=== PATIENT | male | born 2000 | race Caucasian/White ===

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

== ENCOUNTER 2023-02-02 12:48 | Emergency (ER) | payer OTHER ==
[~2023-02-02] VITALS: Ht 182.9 cm; Wt 95.3 kg
[~2023-02-02 12:48] MED LIST: RIZA10TA20 PO
[2023-02-02] MEDS ORDERED: NS IV 1000 ML 1,000 ML IV STA (13:09)
[2023-02-02] MEDS ORDERED: hydrALAZINE (APESOLINE) 20 MG/ML VIAL IV STA (13:09)
[2023-02-02] MEDS ORDERED: ASPIRIN 81 MG CHEW (CHILDREN'S ASA) PO ONE (13:15)
--- NOTE | 2023-02-02 13:15 | ED Chest Pain ---
General Chief Complaint: Chest Pain Stated Complaint: CHEST PAIN Nursing Triage Note: PT AMBULATE TO [facility] WITHOUT DIFFICULTY WIT C/O CHEST PAIN STARTING YESTERDAY. PT REPORTS MED CHANGE X3 WEEKS AGO. Source: patient History of Present Illness Date Seen by Provider: Feb 02, 2023 Time Seen by Provider: 12:51 Initial Comments 22-year-old male presenting with complaints of substernal chest pain that started yesterday as well as intermittent headaches over the last few weeks. He reports that he had been on lisinopril for blood pressure control but developed a cough with it so they switched him to start losartan. He has had some intermittent episodes of headache and felt like it was related to his blood pressure being high. With him continuing to have chest pains today from last night he came to the emergency department to be evaluated. He had not taking anything for pain at home. He denies having nausea, vomiting, shortness of breath, cough, abdominal pain, radiation of the chest pain. He was unsure if it was just related to his high blood pressure or if he had something else going on. He has no known cardiac history other than the high blood pressure. He reports that he has seen a sample grinder about his blood pressure in the head told him he should have his thyroid checked but he has not gone back to the [facility] since being told that. Timing/Duration: 24 hours (Intermittent chest pain since last night. Was worse while he was at work today so came to the emergency department to be evaluated.) Severity/Quality: mild, dull Location: substernal Radiation: no radiation Activities at Onset: rest (QRS last night and denies any strenuous activity at work today when he was having recurrent pain) Prior CP/Workup: no prior chest pain Modifying Factors: improves with other (Nothing seems to make the pain better or worse.) ASA po CORPORATE INVESTIGATOR: No NTG SL CORPORATE INVESTIGATOR: No Associated Symptoms: No abdominal pain, No back pain, No diaphoresis, No dizziness, No edema; fatigue; No fever/chills; headache; No heartburn, No nausea/vomiting, No rash; shortness of breath; No swelling/lump in chest, No syncope Allergies and Home Medications Allergies Coded Allergies: No Known Drug Allergies (Unverified , 12/26/19) Patient Home Medication List Home Medication List Reviewed: Yes Rizatriptan Benzoate (Maxalt Sales Agent) 10 Mg Tab.rapdis, 10 MG PO NEEDED Prescribed by: ALEA MCDONALD on 12/26/19 4214 Review of Systems Review of Systems Constitutional: No chills, No dizziness, No fever EENTM: No Blurred Vision, No Ear Drainage, No Ear Pain, No Nose Congestion Respiratory: See HPI; Denies Cough, Denies Stridor, Denies Wheezing Cardiovascular: See HPI; Denies Edema Gastrointestinal: See HPI; Denies Nausea, Denies Vomiting Genitourinary: No Symptoms Reported Musculoskeletal: no symptoms reported Skin: No change in color, No rash Psychiatric/Neurological: Headache; Denies Numbness, Denies Paresthesia Past Dengmcd-Kjbtvy-Vsmsai Hx Patient Social History Tobacco Use?: No Smoking Status: Never a Smoker Smokeless Tobacco Frequency: Never a User Use of E-Cig and/or Vaping dev: No Use of E-Cig and/or Vaping Samir: Never a User Substance use?: No Alcohol Use?: Yes Alcohol Frequency: Once in a while Pt feels they are or have been: No Past Medical History Surgery/Hospitalization HX: Hypertension Surgeries: No Respiratory: No Cardiac: Yes Neurological: No Genitourinary: No Gastrointestinal: No Musculoskeletal: No Endocrine: No HEENT: No Cancer: No Psychosocial: No Integumentary: No Blood Disorders: No Physical Exam Vital Signs Vital Signs - First Documented 02/02/23 02/02/23 12:48 15:51 Temp 36.4 Pulse 90 Resp 18 B/P (MAP) 173/64 (100) Pulse Ox 97 O2 Delivery Room Air Capillary Refill : Less Than 3 Seconds Height, Weight, BMI Height: '" Weight: lbs. oz. kg; 28.00 BMI Method: General Appearance: No Apparent Distress, WD/WN HEENT: PERRL/EOMI, Pharynx Normal Neck: Full Range of Motion, Normal Inspection, Non Tender, Supple Respiratory: Chest Non Tender, Lungs Clear, Normal Breath Sounds, No Accessory Muscle Use, No Respiratory Distress Cardiovascular: Regular Rate, Rhythm, Normal Peripheral Pulses Gastrointestinal: Normal Bowel Sounds, No Pulsatile Mass, Non Tender, Soft Extremity: Normal Capillary Refill, Normal Inspection, No Pedal Edema Neurologic/Psychiatric: Alert, Oriented x3, wafer fabrication technician II-XII Norm as Tested Skin: Normal Color, Warm/Dry Progress/Results/Core Measures Results/Orders Lab Results Laboratory Tests Test 02/02/23 12:34 02/02/23 14:45 Range/Units White Blood Count 8.3 4.3-11.0 10^3/uL Red Blood Count 5.39 4.30-5.52 10^6/uL Hemoglobin 15.6 13.3-17.7 g/dL Hematocrit 45 40-54 % Mean Corpuscular Volume 84 80-99 fL Mean Corpuscular Hemoglobin 29 25-34 pg Mean Corpuscular Hemoglobin Concent 34 32-36 g/dL Red Cell Distribution Width 12.8 10.0-14.5 % Platelet Count 223 130-400 10^3/uL Mean Platelet Volume 10.3 9.0-12.2 fL Immature Granulocyte % (Auto) 0 % Neutrophils (%) (Auto) 70 42-75 % Lymphocytes (%) (Auto) 20 12-44 % Monocytes (%) (Auto) 7 0-12 % Eosinophils (%) (Auto) 2 0-10 % Basophils (%) (Auto) 1 0-10 % Neutrophils # (Auto) 5.9 1.8-7.8 10^3/uL Lymphocytes # (Auto) 1.7 1.0-4.0 10^3/uL Monocytes # (Auto) 0.6 0.0-1.0 10^3/uL Eosinophils # (Auto) 0.2 0.0-0.3 10^3/uL Basophils # (Auto) 0.0 0.0-0.1 10^3/uL Immature Granulocyte # (Auto) 0.0 0.0-0.1 10^3/uL Prothrombin Time 13.0 12.2-14.7 SEC INR Comment 0.9 0.8-1.4 Activated Partial Thromboplast Time 27 24-35 SEC Sodium Level 137 135-145 MMOL/L Potassium Level 3.8 3.6-5.0 MMOL/L Chloride Level 99 98-107 MMOL/L Carbon Dioxide Level 24 21-32 MMOL/L Anion Gap 14 5-14 MMOL/L Blood Urea Nitrogen 11 7-18 MG/DL Creatinine 1.07 0.60-1.30 MG/DL Estimat Glomerular Filtration Rate 101 BUN/Creatinine Ratio 10 Glucose Level 126 H 70-105 MG/DL Calcium Level 9.7 8.5-10.1 MG/DL Corrected Calcium 8.5-10.1 MG/DL Magnesium Level 1.6 1.6-2.4 MG/DL Total Bilirubin 0.4 0.1-1.0 MG/DL Aspartate Amino Transf (AST/SGOT) 18 5-34 U/L Alanine Aminotransferase (ALT/SGPT) 20 0-55 U/L Alkaline Phosphatase 98 40-136 U/L Troponin I < 0.30 < 0.30 <0.30 NG/ML Pro-B-Type Natriuretic Peptide < 36.0 <125.0 PG/ML Total Protein 7.9 6.4-8.2 GM/DL Albumin 4.9 H 3.2-4.5 GM/DL Lipase 31 8-78 U/L My Orders Orders - DEJUAN ALEMAN MD Cbc With Automated Diff (02/02/23 13:09) Magnesium (02/02/23 13:09) Chest 1 View Ap/Pa Only (02/02/23 13:09) Ekg Tracing (02/02/23 13:09) Comprehensive Metabolic Panel (02/02/23 13:09) Protime With Inr (02/02/23 13:09) Partial Thromboplastin Time (02/02/23 13:09) Monitor-Rhythm Ecg Trace Only (02/02/23 13:09) Aspirin Chewable Tablet (Baby Aspirin Ch (02/02/23 13:15) Ed Iv/Invasive Line Start (02/02/23 13:09) Lipase (02/02/23 13:09) Troponin I Fs (02/02/23 13:09) Probnp Fs (02/02/23 13:09) Hydralazine Injection (Apresoline Inject (02/02/23 13:09) Ns Iv 1000 Ml (Sodium Chloride 0.9%) (02/02/23 13:09) Troponin I Fs (02/02/23 14:31) Medications Given in ED Current Medications Medications Dose Ordered Sig/Hever Route Start Time Stop Time Status Last Admin Dose Admin Aspirin 324 mg ONCE ONCE PO 02/02/23 13:15 02/02/23 13:16 DC 02/02/23 13:23 324 MG Vital Signs/I&O 02/02/23 02/02/23 12:48 15:51 Temp 36.4 36.2 Pulse 90 78 Resp 18 17 B/P (MAP) 173/64 (100) 149/86 Pulse Ox 97 O2 Delivery Room Air Room Air Blood Pressure Mean: 100 Progress Progress Note #1: Progress Note Potential diagnosis of hypertension, hypertensive urgency, myocardial infarction, acute coronary syndrome, GERD, esophageal spasm, cholecystitis, cholelithiasis, pancreatitis, pneumonia. Obtain peripheral IV access and send labs for complete blood count, comprehensive metabolic profile, magnesium, coagulation factors, troponin, proBNP. Obtain electrocardiogram to look at patient's heart rate and rhythm and look for ischemic changes. Placed on cardiac hospital monitor to watch for cardiac arrhythmia. Initially his cardiac rhythm showed sinus rhythm with a heart rate in the 70s. Obtain a chest x-ray to look for signs of mass, acute infiltrate, effusion. Administer aspirin 324 mg p.o. x1, hydralazine 10 mg IV to try and help with the blood pressure is initially he had 1 68-1 76 over 70s to 80s. Also administer normal saline 1 L IV fluid bolus for hydration. Progress Note #2: Progress Note On my personal review and interpretation of his electrocardiogram did not show any acute ischemic changes. His complete blood count was normal without elevation of the white blood cells for an infection and he was not anemic with a hemoglobin of 15.6. His comprehensive metabolic panel did not show any acute significant electrolyte imbalance to contribute to his complaint of high blood pressure and chest pain. He had improved blood pressure and pain with aspirin and hydralazine with IV fluids. He denies having any further pain on recheck of the patient. His blood pressure now ranges from 1 27-1 37 systolic. His troponin was less than 0.3 and he did not have elevation of his proBNP. His lipase was normal. He had no acute infiltrate or effusions on his 1 view chest x-ray. Will recheck the troponin at 2-hour calos to ensure that it was not changing or going out. Since he had had some pain since last night this would be a delta troponin and he would be able to be discharged home rather than after consider admission to the hospital for atypical chest pain. Encouraged to check back with the clinic about his blood pressure and they may have to adjust his medication dosing or add an additional blood pressure medicine. Also check with the clinic about thyroid testing as I did not have that immediately available in the emergency department. Progress Note #3: Progress Note Repeat troponin is still less than 0.3. He has had no recurrence of chest pain as his blood pressures come down. Encouraged again to check with the clinic about his thyroid and blood pressure medication dosing. Encouraged to drink plenty of fluids and stay well rested. Check back for continued or worsening symptoms either here in the emergency department or with the clinic. Initial ECG Impression Date: Feb 02, 2023 Initial ECG Impression Time: 12:54 Initial ECG Rate: 62 Initial ECG Rhythm: Normal Sinus Initial ECG Comparisson: No Previous ECG Available Comment Based on my personal interpretation and review the electrocardiogram shows sinus rhythm with a heart rate of 62 bpm. AK interval [address] elevation. No prior tracing for comparison. QT interval 357 ms with a QTc interval 363 ms. Diagnostic Imaging Diagonstic Imaging: Xray Plain Films/CT/US/NM/MRI: chest Comments [facility], [place] NAME: OLIVER LEMONS [facility] REC#: [id number] PT STATUS: DEP ER : 2000 PHYSICIAN: DEJUAN ALEMAN MD ADMIT DATE: 02/02/23/ER FS Signed Date of Exam:02/02/23 CHEST 1 VIEW AP/PA ONLY INDICATION: Chest pain with shortness of breath. FINDINGS: Two frontal radiographs of the chest are performed. The lungs are clear. No failure, effusion, or pneumothorax. IMPRESSION: Unremarkable frontal chest radiographs. Dictated by: Dictated on workstation # [id number] Dict: 02/02/23 1337 Trans: 02/02/23 1741 [id number] Interpreted by: MALLORY MURRELL Electronically signed by: MALLORY MURRELL 02/02/23 174 Reviewed: Reviewed by In Departure Impression Primary Impression: Hypertension Qualified Codes: I10 - Essential (primary) hypertension Additional Impression: Atypical chest pain Disposition: 01 HOME, SELF-CARE Condition: Improved Departure-Patient Inst. Decision time for Depature: 15:37 Referrals: ROXANA SAENZ APRN (PCP) Primary Care Physician [facility] (Family) Primary Care Physician Patient Instructions: High Blood Pressure ED, Chest Pain, Adult ED, DASH Diet Add. Discharge Instructions: Try following a dash diet for helping with your medicines to control your blood pressure better. Follow-up with the clinic as they may need to adjust your medications for blood pressure to get better control. When you follow-up with the clinic he could also check with them about the thyroid test that you were recommended to get from the other providers that you have seen. Try to stay well-hydrated and get plenty of rest. If your symptoms are worsening or you have new problems and concerns then you should be reevaluated otherwise certainly getting back in with the clinic for follow-up. All discharge instructions reviewed with patient and/or family. Voiced understanding. Work/School Note: Work Release Form Date Seen in the Emergency Department: Feb 02, 2023 Return to Work: Feb 03, 2023 Restrictions: No Restrictions DEJUAN ALEMAN MD Feb 02, 2023 13:15
[2023-02-02 13:24] LABS: BASOPHILS % (AUTO) 1 % (0-10); EOSINOPHILS # (AUTO) 0.2 10^3/uL (0.0-0.3); EOSINOPHILS % (AUTO) 2 % (0-10); HEMATOCRIT 45 % (40-54); HEMOGLOBIN 15.6 g/dL (13.3-17.7); LYMPHOCYTES # (AUTO) 1.7 10^3/uL (1.0-4.0); LYMPHOCYTES % (AUTO) 20 % (12-44); MEAN CORPUSCULAR HEMOGLOBIN 29 pg (25-34); MEAN CORPUSCULAR HGB CONC 34 g/dL (32-36); MEAN CORPUSCULAR VOLUME 84 fL (80-99); MEAN PLATELET VOLUME 10.3 fL (9.0-12.2); MONOCYTES # (AUTO) 0.6 10^3/uL (0.0-1.0); MONOCYTES % (AUTO) 7 % (0-12); NEUTROPHILS # (AUTO) 5.9 10^3/uL (1.8-7.8); NEUTROPHILS % (AUTO) 70 % (42-75); PLATELET COUNT 223 10^3/uL (130-400); WHITE BLOOD COUNT 8.3 10^3/uL (4.3-11.0)
[2023-02-02 13:34] LABS: INR 0.9 (0.8-1.4)
[2023-02-02 13:37] LABS: ALANINE AMINOTRANSFERASE 20 U/L (0-55); ALKALINE PHOSPHATASE 98 U/L (40-136); BILIRUBIN,TOTAL 0.4 MG/DL (0.1-1.0); BUN/CREATININE RATIO 10; CALCIUM 9.7 MG/DL (8.5-10.1); CARBON DIOXIDE 24 MMOL/L (21-32); CHLORIDE 99 MMOL/L (98-107); CREATININE SERUM 1.07 MG/DL (0.60-1.30); GFR ESTIMATED 101; GLUCOSE 126 MG/DL (70-105); MAGNESIUM 1.6 MG/DL (1.6-2.4); POTASSIUM 3.8 MMOL/L (3.6-5.0); SODIUM 137 MMOL/L (135-145)
[2023-02-02 13:38] LABS: ALBUMIN 4.9 GM/DL (3.2-4.5); LIPASE 31 U/L (8-78); TOTAL PROTEIN 7.9 GM/DL (6.4-8.2)
--- NOTE | 2023-02-02 13:41 | Diagnostic Imaging Report ---
INDICATION: Chest pain with shortness of breath. FINDINGS: Two frontal radiographs of the chest are performed. The lungs are clear. No failure, effusion, or pneumothorax. IMPRESSION: Unremarkable frontal chest radiographs. Dictated by: Dictated on workstation # [id number]
[2023-02-02 15:51] VITALS: BP 149/86
== END 2023-02-02 15:51 | disposition home or self-care (01) ==
LOC: EDUNIT# 12:48 → ER FS 12:50
DX: I10 Essential (primary) hypertension (principal); Z79.899 Other long term (current) drug therapy; Z28.310 Unvaccinated for COVID-19
CPT/HCPCS: 36415; 71045; 80053; 83690; 83735; 83880; 84484; 85025; 85610; 85730; 93005; 93041